=== PATIENT | female | born 1960 | race Hispanic/Latino ===

== ENCOUNTER 2025-08-10 19:57 | Emergency (ER) | payer SELFPAY ==
[2025-08-10] MEDS ORDERED: Fluorescein Opthalmic Strip ONE (20:28)
[2025-08-10] MEDS ORDERED: Tetracaine 0.5% PF 4 ML BOT ONE (20:28)
== END 2025-08-10 21:10 | disposition home or self-care (01) ==
LOC: NAV ERS 19:57
DX: S05.02XA Injury of conjunctiva and corneal abrasion without foreign body, left eye, initial encounter (principal); E11.9 Type 2 diabetes mellitus without complications; I10 Essential (primary) hypertension; Z79.84 Long term (current) use of oral hypoglycemic drugs; Z79.899 Other long term (current) drug therapy; X58.XXXA Exposure to other specified factors, initial encounter
CPT/HCPCS: 99283